=== PATIENT | male | born 1950 | race Caucasian/White ===

== ENCOUNTER 2019-07-12 15:06 | Outpatient (CLI) | payer OTHER ==
[~2019-07-12 15:06] MED LIST: HYDR25TA6 PO; LOSA100T14 PO
== END 2019-07-12 23:59 | disposition home or self-care (01) ==
LOC: CFH 15:06
PROVIDERS: ATTEND Nurse Practitioner
DX: M79.641 Pain in right hand (principal); R20.0 Anesthesia of skin